=== PATIENT | female | born 1975 | race African-American/Black ===

== ENCOUNTER 2019-07-13 07:45 | Emergency (ER) | payer SELFPAY ==
[~2019-07-13] VITALS: Ht 157.5 cm; Wt 69.5 kg
[2019-07-13 08:06] VITALS: BP 115/53
--- NOTE | 2019-07-13 08:06 | PHYS DOC ---
General Adult EDM: Chief Complaint: FACE PROBLEM HPI: HPI: Patient is a 43 year old female without history of medical who presents with complaining of lips swelling. Patient states she had upper and lower lips itching for the last 4 days after starting a new toothpaste and applied Abreva but since 2 AM today had upper and lower lip edema without pain, tongue swelling, shortness of breath, dysphagia, rash, cough, history of the same problem. Patient denies using new medication. Review of Systems: Review of Systems: Constitutional: Denies fever or chills. [] Eyes: Denies change in visual acuity. [] HENT: Denies nasal congestion or sore throat. [] Respiratory: Denies cough or shortness of breath. [] Cardiovascular: Denies chest pain or edema. [] GI: Denies abdominal pain, nausea, vomiting, bloody stools or diarrhea. [] : Denies dysuria. [] Musculoskeletal: Denies back pain or joint pain. [] Integument: Denies rash. [] Neurologic: Denies headache, focal weakness or sensory changes. [] Endocrine: Denies polyuria or polydipsia. [] Lymphatic: Denies swollen glands. [] Psychiatric: Denies depression or anxiety. [] Heart Score: Risk Factors: Risk Factors: DM, Current or recent (<one month) smoker, HTN, HLP, family history of CAD, obesity. Risk Scores: Score 0 - 3: 2.5% MACE over next 6 weeks - Discharge Home Score 4 - 6: 20.3% MACE over next 6 weeks - Admit for Clinical Observation Score 7 - 10: 72.7% MACE over next 6 weeks - Early Invasive Strategies Allergies: Allergies: Allergies Coded Allergies Type Severity Reaction Last Updated Verified Penicillins Allergy Mild Unknown 07/13/19 Yes Physical Exam: PE: Constitutional: Well developed, well nourished, no acute distress, non-toxic appearance. [] HENT: Normocephalic, atraumatic, upper and lower lips mild edema without erythema, bilateral external ears normal, oropharynx moist, no oral exudates, nose normal. [] Eyes: PERRLA, EOMI, conjunctiva normal, no discharge. [] Neck: Normal range of motion, no tenderness, supple, no stridor. [] Cardiovascular:Heart rate regular rhythm, no murmur [] Lungs & Thorax: Bilateral breath sounds clear to auscultation [] Neurologic: Alert and oriented X 3, normal motor function, normal sensory function, no focal deficits noted. [] Psychologic: Affect normal, judgement normal, mood normal. [] EKG: EKG: [] Radiology/Procedures: Radiology/Procedures: [] Course & Med Decision Making: Course & Med Decision Making Evaluation of patient in ER showed 43-year-old female patient complaining of upper and lower lip edema without other symptoms. Prescription for hydroxyzine was given and patient was advised to stop taking Abreva and her new toothpaste. I've spoken with the patient and/or caregivers. I've explained the patient's condition, diagnosis and treatment plan based on information available to me at this time. I've answered the patient's and/or caregivers questions and addressed any concerns. The patient and/or caregivers have a good understanding the patient's diagnosis, condition and treatment plan as can be expected at this point. Vital signs have been stabilized. The patient's condition is stable for discharge from the emergency department. The patient will pursue further outpatient evaluation with her primary care pro vider or other designated consulting physician as outlined in the discharge instructions. Patient and/or caregivers are agreeable to this plan of care and follow-up instructions have been explained in detail. The patient and/or caregivers have received these instructions in written format and expressed understanding of these discharge instructions. The patient and her caregivers ar e aware that if any significant change in condition or worsening of symptoms should prompt him to immediately return to this of the closest emergency department. If an emergent department is not readily available I would encourage him to call 911. Vivi Disclaimer: Vivi Disclaimer: This electronic medical record was generated, in whole or in part, using a voice recognition dictation system. Departure Departure Impression: Primary Impression: Allergic reaction Qualified Codes: T78.40XA - Allergy, unspecified, initial encounter Disposition: HOME, SELF-CARE (At 0807) Condition: STABLE Referrals: NO PCP (PCP) Patient Instructions: Drug Allergy, Food Allergy Additional Instructions: Drink plenty of liquids Follow-up with your primary care physician in 3-5 days Return to ER if not getting better Thank you for visiting [facility]. We appreciate you trusting us with your care. If any additional problems come up don't hesitate to return to visit us. Please follow up with your primary care provider so they can plan additional care if needed and know about the problem that you had. If symptoms worsen come back to the Emergency Department. Any concerning symptoms that start such as chest pain, shortness of air, weakness or numbness on one side of the body, running high fevers or any other concerning symptoms return to the ER. Scripts Hydroxyzine Hcl (HYDROXYZINE HCL) 25 Mg Tablet 1 TAB PO TID PRN for itching, #20 TAB Prov: SAAD BUCHANAN MD 07/13/19 SAAD BUCHANAN MD Jul 13, 2019 08:06
[2019-07-13] MEDS ORDERED: HYDR25TA PO (08:10)
== END 2019-07-13 08:20 | disposition home or self-care (01) ==
LOC: ER 07:45
DX: K13.0 Diseases of lips (principal); T37.5X5A Adverse effect of antiviral drugs, initial encounter; R60.0 Localized edema; L29.9 Pruritus, unspecified; Z88.0 Allergy status to penicillin; Y92.89 Other specified places as the place of occurrence of the external cause
CPT/HCPCS: 99283

== ENCOUNTER 2020-11-30 08:13 | Emergency (ER) | payer SELFPAY ==
[~2020-11-30] VITALS: Ht 157.5 cm; Wt 60.0 kg
[~2020-11-30 08:13] MED LIST: HYDR25TA PO
[2020-11-30] MEDS ORDERED: IV NORMAL SALINE 1000ML BAG 1,000 ML IV ONE (08:45)
[2020-11-30] MEDS ORDERED: KETOROLAC 15 MG/ML VIAL. IVP ONE (08:45)
[2020-11-30 08:48] LABS: BILIRUBIN,URINE SMALL (NEG); CLARITY,URINE CLEAR; COLOR,URINE YELLOW; NITRITE,URINE NEGATIVE (NEG); PH,URINE 5.5 (<5.0-8.0); PROTEIN,URINE NEGATIVE (NEG-TRACE)
--- NOTE | 2020-11-30 08:58 | PHYS DOC ---
Past Medical History Past Medical History: No Pertinent History Past Surgical History: No Surgical History Smoking Status: Current Every Day Smoker Alcohol Use: Occasionally General Adult EDM: Chief Complaint: FLANK PAIN HPI: HPI: 45-year-old female presents to the emergency department complaining of left lower back pain for the past 5 days. Nonradiating, not affected by urination, not associate with cough, fever, abdominal pain. She reports that she works at a [employer], frequently lifting heavy items. The patient denies nausea, vomiting, fever, chills, chest pain, shortness of breath, abdominal pain, urinary symptoms, cough, recent trauma, or any other complaints. Review of Systems: Review of Systems: Constitutional: Denies fever or chills. Eyes: Denies change in vision, pain. HENT: Denies congestion or sore throat. Respiratory: Denies cough or shortness of breath. Cardiovascular: Denies chest pain or edema. GI: Denies abdominal pain, nausea. : Denies change in urination, dysuria. Musculoskeletal: Admits to left-sided back pain, denies trauma. Skin: Denies rash, skin change. Neurologic: Denies headache, focal weakness. Psychiatric: Denies depression or anxiety. All other systems reviewed as negative except for what was mentioned in the HPI. Heart Score: C/O Chest Pain: No Current Medications: Current Medications Medications (Trade) Dose Ordered Sig/Garland Start Time Stop Time Status Last Admin Dose Admin Ketorolac Tromethamine (Toradol 15mg Vial) 15 mg 1X ONCE 11/30/20 08:45 11/30/20 08:47 DC Lidocaine (Lidoderm) 1 patch 1X ONCE 11/30/20 09:00 11/30/20 09:01 Sodium Chloride 1,000 ml @ 1,000 mls/hr 1X ONCE 11/30/20 08:45 11/30/20 09:44 Allergies: Allergies: Allergies Coded Allergies Type Severity Reaction Last Updated Verified Penicillins Allergy Mild Unknown 07/13/19 Yes Physical Exam: PE: Constitutional: No acute distress, non-toxic appearance. HENT: Atraumatic, bilateral external ears normal, nose normal. Eyes: PERRLA, EOMI, conjunctiva normal, no discharge. Neck: Normal range of motion, supple, no stridor. Cardiovascular: Heart rate regular rhythm. 2+ radial pulses Lungs & Thorax: No respiratory distress, symmetrical expansion. Bilateral breath sounds clear to auscultation Abdomen: Soft, no tenderness Back: Tenderness to the left paralumbar area, no spinal tenderness in the lumbar thoracic spines Skin: Warm, dry. Extremities: No tenderness, no cyanosis, ROM intact, no edema. Neurologic: Alert and oriented X 3, normal motor function, normal sensory func tion, no focal deficits noted. Non ataxic gait. GCS 15. Psychologic: Affect normal, judgment normal, mood normal. Current Patient Data: Labs: Laboratory Tests Test 11/30/20 08:40 POC Urine HCG, Qualitative Hcg negative (Negative) Vital Signs: Vital Signs Date Time Temp Pulse Resp B/P (MAP) Pulse Ox O2 Delivery O2 Flow Rate FiO2 11/30/20 08:37 98.1 107 18 110/74 98 98.1 Course & Med Decision Making: Course & Med Decision Making Patient would not allow lab draw or IV to be placed, felt better after interventions as below. Pain is likely musculoskeletal and urine appears contaminated. She was advised to return to the emergency department she has any urinary symptoms of progress, fever, chills, change in character of her symptoms or any further concerns. She was provided with a work note. My Orders - WILLIE STRONG DO Procedure Category Date Status Time Ua, Cult If Indicated LAB 11/30/20 Complete 08:16 Urine Test SABAS 11/30/20 Complete 08:16 Cbc W [employer] LAB 11/30/20 Logged 08:44 Basic Metabolic Panel LAB 11/30/20 Logged 08:44 Iv Normal Saline PHA 11/30/20 Complete 1000ml Bag (Iv Sodium 08:45 Ketorolac 15mg Vial PHA 11/30/20 Complete (Toradol 15mg Vial) 08:45 Lidocaine PHA 11/30/20 Complete (700mg/Patch) 09:00 Urine Culture AMAN 11/30/20 In Process 09:07 Departure Departure Impression: Primary Impression: Back pain Disposition: 01 HOME / SELF CARE / HOMELESS Condition: GOOD Referrals: NO PCP (PCP) Patient Instructions: Back Pain, Adult, [id number] Additional Instructions: You were seen in the emergency department for back pain. Your pain could be musculoskeletal in nature and could be from a pulled or strained muscle. The pain should improve with NSAID medications (ibuprofen, Aleve, etc.), stretching, and light activity. You may also use Tylenol for your back pain (no more than 3000 mg per day). Take as directed by instructions. Do not take NSAID medications if you have kidney disease. Do not take Tylenol if you have liver disease. If it does not improve, you should follow up with a primary care doctor. - Use stretching and strengthening exercises at least twice per day, continue to complete physical activity such as walking, and alternate ice and heat (ie heating pad) to the area of pain. - Return to the Emergency Department should your symptoms worsen, or should you develop a fever, change in bowel or bladder habits, weakness or numbness in your lower extremities, inability to walk, or any concern you feel warrants further evaluation. - Take Aleve or Ibuprofen, and Tylenol as needed for your pain. - You may use over the counter lidocaine patches as needed for pain. - Avoid taking narcotic medications for back pain. - Follow up with your doctor within 1-2 weeks if your symptoms are not improving. WILLIE STRONG DO Nov 30, 2020 08:58
[2020-11-30 09:00] VITALS: BP 103/62
[2020-11-30] MEDS ORDERED: LIDOCAINE (700MG/PATCH) PATCH. TD ONE (09:00)
[2020-11-30 09:05] LABS: BACTERIA,URINE FEW /HPF (0-FEW); RBC,URINE 0 /HPF (0-2)
== END 2020-11-30 10:45 | disposition home or self-care (01) ==
LOC: ER 08:13
DX: M54.5 Low back pain (principal); F17.200 Nicotine dependence, unspecified, uncomplicated; Z88.0 Allergy status to penicillin
CPT/HCPCS: 81001; 81025; 87086; 99283